=== PATIENT | female | born 1995 | race African-American/Black ===

== ENCOUNTER 2020-05-11 20:08 | Emergency (ER) | payer OTHER ==
[~2020-05-11] VITALS: Ht 165.1 cm; Wt 52.2 kg
--- NOTE | 2020-05-11 20:10 | NUR ---
PT AAOX4. AMBULATORY WITH STEADY GAIT.BIBMOMTHER C/O ANXIETY ATTACK AFTER EATING MARIJUANA INFUSED FOOD. 1HR CO OP. PT NOTED TO BE TACHY UPON ASSESSMENT. LINE ESTABLISHED RAC 18G, PA AT BEDSIDE FOR EVAL. AWAITING ORDERS.
[2020-05-11] MEDS ORDERED: LORAZEPAM INJ 2 MG/ML VIAL ONE ×2 (20:42→21:25)
[2020-05-11] MEDS ORDERED: LORAZEPAM INJ 2 MG/ML VIAL IV ONE ×2 (21:00→21:30)
[2020-05-11] MEDS ORDERED: IV NS 0.9% 1,000 ML BAG IV ONE (21:00)
--- NOTE | 2020-05-11 21:14 | NUR ---
PT AMBULATED TO THE RESTROOM, STATED SHE FEELS BETTER.
--- NOTE | 2020-05-11 22:37 | NUR ---
IV removed. Catheter intact and site benign. Pressure and 4x4 applied to site. No bleeding noted.
--- NOTE | 2020-05-11 22:58 | NUR ---
PT WILL BE DISCHARGED, SPOKE TO THE MOTHER TO TEMPORARY RECEPTIONIST PT.
--- NOTE | 2020-05-11 23:13 | NUR ---
Patient discharged to home in stable condition. Written and verbal after care instructions given. Patient verbalizes understanding of instruction. Pt picked up by mother.
[2020-05-11 23:14] VITALS: BP 119/63
== END 2020-05-11 23:17 | disposition home or self-care (01) ==
LOC: ER 20:10
DX: F12.129 Cannabis abuse with intoxication, unspecified (principal); F41.9 Anxiety disorder, unspecified; R94.31 Abnormal electrocardiogram [ECG] [EKG]
CPT/HCPCS: 93005; 96361; 96374; 96376; 99285; J2060 ×2; J7030